=== PATIENT | male | born 1955 | race African-American/Black ===

== ENCOUNTER 2021-12-25 10:34 | Inpatient (IN) | payer MEDICARE, MEDICAID ==
[~2021-12-25] VITALS: Ht 167.6 cm; Wt 64.0 kg
[2021-12-25] MEDS ORDERED: HYDRALAZINE 20MG/ML VIAL IV ONE (11:15)
[2021-12-25 12:14] LABS: BASOPHILS % 0.7 % (0.0-2.0); HEMATOCRIT. 35.2 % (42.0-52.0); HEMOGLOBIN. 11.2 g/dL (14.0-18.0); LYMPHOCYTES % 8.9 % (20.0-50.0); MEAN CORPUSCULAR HEMOGLOBIN 27.3 pg (28.0-32.0); MEAN CORPUSCULAR VOLUME 85.7 fL (80.0-94.0); MEAN PLATELET VOLUME 9.2 fl (7.4-10.4); MONOCYTES % 9.1 % (2.0-8.0); NEUTROPHILS % 80.3 % (40.0-76.0); PLATELET 142 x1000/uL (130-400); RED BLOOD CELL COUNT 4.11 mill/uL (4.7-6.1); RED CELL DISTRIBUTION WIDTH 15.9 % (11.6-14.6)
[2021-12-25 12:23] LABS: PROTHROMBIN TIME 11.2 sec (9.6-11.0)
[2021-12-25 12:25] LABS: CHLORIDE 103 mEq/L (98-107)
[2021-12-25] MEDS ORDERED: ONDANSETRON HCL 4MG/2ML INJ IV ONE (13:15)
[2021-12-25] MEDS ORDERED: ONDANSETRON HCL 4MG/2ML INJ IV NR (15:15)
[2021-12-25] MEDS ORDERED: ONDANSETRON HCL 4MG/2ML INJ IV PRN (21:15)
[2021-12-25] MEDS ORDERED: MAGNESIUM/ALUMINUM HYDROXIDE/SIMETHICONE 30ML UDC PO PRN (21:15)
[2021-12-25] MEDS ORDERED: GUAIFENESIN 200MG/10ML SUGAR FREE UDC PO PRN (21:15)
[2021-12-25] MEDS ORDERED: ENOXAPARIN 40MG/0.4ML SYR SUBCUT SCH (21:15)
[2021-12-25] MEDS ORDERED: NALOXONE HCL 0.4MG/ML VIAL IV PRN (22:00)
[2021-12-25] MEDS: ENOXAPARIN 30MG/0.3ML SYR SUBCUT SCH (22:43)
[2021-12-25 23:00] VITALS: BP 170/88
[2021-12-26 00:01] VITALS: BP 122/60
[2021-12-26 03:54] VITALS: BP 131/64
[2021-12-26 08:00] VITALS: BP 137/75
[2021-12-26 08:23] LABS: BASOPHILS % 0.8 % (0.0-2.0); EOSINOPHILS % 2.3 % (0.0-5.0); HEMATOCRIT. 30.7 % (42.0-52.0); LYMPHOCYTES % 15.2 % (20.0-50.0); MEAN CORPUSCULAR VOLUME 86.2 fL (80.0-94.0); MEAN PLATELET VOLUME 10.3 fl (7.4-10.4); MONOCYTES % 12.9 % (2.0-8.0); NEUTROPHILS % 68.8 % (40.0-76.0); PLATELET 134 x1000/uL (130-400); RED BLOOD CELL COUNT 3.56 mill/uL (4.7-6.1); RED CELL DISTRIBUTION WIDTH 16.2 % (11.6-14.6)
[2021-12-26] MEDS ORDERED: DEXTROSE 50% WATER 50ML SYRINGE IV PRN (09:30)
[2021-12-26 09:42] LABS: PHOSPHORUS 5.5 mg/dL (2.5-4.9); T4 FREE 1.21 ng/dL (0.76-1.46)
[2021-12-26 12:00] VITALS: BP 155/75
[2021-12-26] MEDS: BLOOD SUGAR DIAGNOSTIC STRIP TEST SCH ×3 (12:10→21:00)
[2021-12-26] MEDS: INSULIN LISPRO 100 UNITS/ML SUBCUT SCH ×3 (12:40→21:00)
[2021-12-26 14:46] LABS: HEPATITIS B SURFACE ANTIGEN NEGATIVE
[2021-12-26 16:00] VITALS: BP 161/73
[2021-12-26 19:02] LABS: CREATINE KINASE MB FRACTION 7.5 ng/mL (0.5-3.6)
[2021-12-26 20:00] VITALS: BP 161/75
[2021-12-26] MEDS: ENOXAPARIN 30MG/0.3ML SYR SUBCUT SCH (21:00)
[2021-12-27] VITALS: BP 179/81
[2021-12-27 00:01] LABS: CREATINE KINASE MB FRACTION 6.2 ng/mL (0.5-3.6)
[2021-12-27] MEDS: HYDRALAZINE 20MG/ML VIAL IV PRN ×4 (03:15→21:12)
[2021-12-27 04:00] VITALS: BP 140/67
[2021-12-27 06:01] LABS: BASOPHILS % 0.8 % (0.0-2.0); EOSINOPHILS % 0.8 % (0.0-5.0); HEMATOCRIT. 33.6 % (42.0-52.0); HEMOGLOBIN. 10.9 g/dL (14.0-18.0); LYMPHOCYTES % 18.3 % (20.0-50.0); MEAN CORPUSCULAR HEMOGLOBIN 27.7 pg (28.0-32.0); MEAN CORPUSCULAR VOLUME 85.3 fL (80.0-94.0); MEAN PLATELET VOLUME 10.1 fl (7.4-10.4); NEUTROPHILS % 68.1 % (40.0-76.0); PLATELET 140 x1000/uL (130-400); RED BLOOD CELL COUNT 3.93 mill/uL (4.7-6.1); RED CELL DISTRIBUTION WIDTH 15.8 % (11.6-14.6)
[2021-12-27 06:34] LABS: CHLORIDE 107 mEq/L (98-107)
[2021-12-27 06:48] LABS: CREATINE KINASE 712 IU/L (39-308); CREATINE KINASE MB FRACTION 6.7 ng/mL (0.5-3.6); PHOSPHORUS 5.4 mg/dL (2.5-4.9)
[2021-12-27] MEDS: BLOOD SUGAR DIAGNOSTIC STRIP TEST SCH ×4 (07:18→21:06)
[2021-12-27] MEDS: INSULIN LISPRO 100 UNITS/ML SUBCUT SCH ×4 (07:19→21:00)
[2021-12-27 08:00] VITALS: BP 180/95
[2021-12-27] MEDS ORDERED: FERR325T30 PO (09:02)
[2021-12-27] MEDS ORDERED: ASPI-1406 PO (09:02)
[2021-12-27] MEDS ORDERED: LOPE2TAB24 PO (09:02)
[2021-12-27] MEDS ORDERED: BISA5TAB10 PO (09:02)
[2021-12-27] MEDS ORDERED: FERROUS SULFATE 325MG TABLET PO SCH (09:30)
[2021-12-27] MEDS: ASPIRIN 81MG EC TABLET PO SCH (09:48)
[2021-12-27] MEDS: MORPHINE SULFATE 2 MG/ML CPJ (NOT FOR IM USE) IV PRN ×5 (11:47→21:15)
[2021-12-27 12:00] VITALS: BP 144/64
[2021-12-27] MEDS ORDERED: CLONIDINE HCL 0.2MG/24HR PATCH TD SCH (14:00)
[2021-12-27 16:00] VITALS: BP 184/82
[2021-12-27] MEDS: PANTOPRAZOLE SODIUM 40 MG/VIAL IV SCH (17:18)
[2021-12-27 20:00] VITALS: BP 170/77
[2021-12-27] MEDS: ENOXAPARIN 30MG/0.3ML SYR SUBCUT SCH (21:11)
[2021-12-27] MEDS ORDERED: DEXT 5%/0.45% NACL 1000ML 1,000 ML IV SCH (21:15)
[2021-12-28] VITALS: BP 141/67
[2021-12-28 04:00] VITALS: BP 180/74
[2021-12-28] MEDS: MORPHINE SULFATE 2 MG/ML CPJ (NOT FOR IM USE) IV PRN ×5 (04:20→23:28)
[2021-12-28] MEDS: HYDRALAZINE 20MG/ML VIAL IV PRN (04:20)
[2021-12-28] MEDS: BLOOD SUGAR DIAGNOSTIC STRIP TEST SCH ×4 (05:46→20:47)
[2021-12-28] MEDS: INSULIN LISPRO 100 UNITS/ML SUBCUT SCH ×4 (05:46→20:47)
[2021-12-28 06:49] LABS: HEMOGLOBIN. 11.3 g/dL (14.0-18.0); MEAN CORPUSCULAR HEMOGLOBIN 27.7 pg (28.0-32.0); MEAN CORPUSCULAR VOLUME 85.6 fL (80.0-94.0); MEAN PLATELET VOLUME 9.9 fl (7.4-10.4); PLATELET 141 x1000/uL (130-400); RED BLOOD CELL COUNT 4.09 mill/uL (4.7-6.1); RED CELL DISTRIBUTION WIDTH 16.5 % (11.6-14.6)
[2021-12-28 06:52] LABS: CHLORIDE 109 mEq/L (98-107)
[2021-12-28 07:06] LABS: PHOSPHORUS 7.1 mg/dL (2.5-4.9)
[2021-12-28 08:00] VITALS: BP 181/76
[2021-12-28] MEDS: ASPIRIN 81MG EC TABLET PO SCH (09:12)
[2021-12-28] MEDS: PANTOPRAZOLE SODIUM 40 MG/VIAL IV SCH (09:12)
[2021-12-28] MEDS: CLONIDINE 0.1MG TABLET PO PRN (09:16)
[2021-12-28] MEDS ORDERED: ARIP30TA17 PO (11:57)
[2021-12-28 12:00] VITALS: BP 187/85
[2021-12-28] MEDS: DEXTROSE 5% WATER 1,000 ML IV SCH (13:08)
[2021-12-28] MEDS: HYDRALAZINE HCL 50MG TABLET PO SCH ×2 (13:08→13:17)
[2021-12-28] MEDS: METOCLOPRAMIDE HCL 10MG/2ML VIAL IV SCH ×3 (13:08→23:27)
[2021-12-28] MEDS ORDERED: MINO2.5T2 PO (13:22)
[2021-12-28] MEDS ORDERED: MINOXIDIL 2.5MG TABLET PO SCH ×2 (13:30→17:00)
[2021-12-28] MEDS ORDERED: SORBITOL 70% SOLN 30ML PO NR (15:15)
[2021-12-28 16:02] VITALS: BP 136/70
[2021-12-28 16:44] LABS: PLATELET ESTIMATE NORMAL
[2021-12-28 20:00] VITALS: BP 138/70
[2021-12-28] MEDS: ENOXAPARIN 30MG/0.3ML SYR SUBCUT SCH (20:51)
[2021-12-28] MEDS ORDERED: INSU100I24 SQ (22:42)
[2021-12-28] MEDS ORDERED: GUAI600T30 PO (22:42)
[2021-12-28] MEDS ORDERED: SILD20TA PO (22:42)
[2021-12-28] MEDS ORDERED: CARV25TA47 MT (22:42)
[2021-12-28] MEDS ORDERED: DIPH1TAB24 MT (22:42)
[2021-12-28] MEDS ORDERED: TAMS-11 PO (22:42)
[2021-12-28] MEDS ORDERED: CALC667T6 MT (22:42)
[2021-12-28] MEDS ORDERED: ATOR-2 PO (22:42)
[2021-12-28] MEDS ORDERED: FOLI1TAB87 MT (22:42)
[2021-12-29] VITALS: BP 142/71
[2021-12-29 04:00] VITALS: BP 142/71
[2021-12-29] MEDS: BLOOD SUGAR DIAGNOSTIC STRIP TEST SCH ×4 (05:05→21:00)
[2021-12-29] MEDS: INSULIN LISPRO 100 UNITS/ML SUBCUT SCH ×4 (05:13→21:04)
[2021-12-29] MEDS: DEXTROSE 5% WATER 1,000 ML IV SCH (05:15)
[2021-12-29] MEDS: METOCLOPRAMIDE HCL 10MG/2ML VIAL IV SCH ×4 (05:15→23:52)
[2021-12-29] MEDS: MORPHINE SULFATE 2 MG/ML CPJ (NOT FOR IM USE) IV PRN ×4 (05:15→23:52)
[2021-12-29 07:44] LABS: BASOPHILS % 0.6 % (0.0-2.0); EOSINOPHILS % 3.2 % (0.0-5.0); HEMOGLOBIN. 10.8 g/dL (14.0-18.0); LYMPHOCYTES % 14.4 % (20.0-50.0); MEAN CORPUSCULAR HEMOGLOBIN 27.7 pg (28.0-32.0); MEAN CORPUSCULAR VOLUME 84.9 fL (80.0-94.0); MEAN PLATELET VOLUME 10.2 fl (7.4-10.4); MONOCYTES % 12.6 % (2.0-8.0); NEUTROPHILS % 69.2 % (40.0-76.0); PLATELET 124 x1000/uL (130-400); RED BLOOD CELL COUNT 3.88 mill/uL (4.7-6.1); RED CELL DISTRIBUTION WIDTH 16.5 % (11.6-14.6)
[2021-12-29 08:00] VITALS: BP 100/71
[2021-12-29] MEDS ORDERED: MINOXIDIL 2.5MG TABLET PO SCH (09:30)
[2021-12-29] MEDS: ASPIRIN 81MG EC TABLET PO SCH (09:39)
[2021-12-29] MEDS: PANTOPRAZOLE SODIUM 40 MG/VIAL IV SCH (09:40)
[2021-12-29 12:00] VITALS: BP 130/79
[2021-12-29 16:00] VITALS: BP 160/66
[2021-12-29 16:58] LABS: HEPATITIS B SURFACE ANTIGEN NEGATIVE
[2021-12-29] MEDS: POLYVINYL ALCOHOL OPHTH DROPS 15ML BOTHEYE SCH ×2 (17:45→23:53)
[2021-12-29] MEDS: CALCITRIOL 0.25MCG CAPSULE PO SCH (17:45)
[2021-12-29 20:00] VITALS: BP 109/50
[2021-12-29] MEDS: ENOXAPARIN 30MG/0.3ML SYR SUBCUT SCH (21:07)
[2021-12-30] VITALS: BP 138/67
[2021-12-30] MEDS: DEXTROSE 5% WATER 1,000 ML IV SCH (01:28)
[2021-12-30 04:00] VITALS: BP 142/72
[2021-12-30] MEDS: INSULIN LISPRO 100 UNITS/ML SUBCUT SCH ×4 (05:29→20:33)
[2021-12-30] MEDS: BLOOD SUGAR DIAGNOSTIC STRIP TEST SCH ×4 (05:29→20:34)
[2021-12-30] MEDS: POLYVINYL ALCOHOL OPHTH DROPS 15ML BOTHEYE SCH ×4 (05:29→22:33)
[2021-12-30] MEDS: METOCLOPRAMIDE HCL 10MG/2ML VIAL IV SCH ×4 (05:29→22:33)
[2021-12-30] MEDS: MORPHINE SULFATE 2 MG/ML CPJ (NOT FOR IM USE) IV PRN ×3 (05:30→22:33)
[2021-12-30 08:00] VITALS: BP 151/75
[2021-12-30 08:24] LABS: BASOPHILS % 0.7 % (0.0-2.0); HEMATOCRIT. 31.2 % (42.0-52.0); HEMOGLOBIN. 10.3 g/dL (14.0-18.0); LYMPHOCYTES % 21.9 % (20.0-50.0); MEAN CORPUSCULAR HEMOGLOBIN 28.1 pg (28.0-32.0); MEAN CORPUSCULAR VOLUME 84.9 fL (80.0-94.0); MEAN PLATELET VOLUME 10.3 fl (7.4-10.4); MONOCYTES % 12.6 % (2.0-8.0); NEUTROPHILS % 59.8 % (40.0-76.0); PLATELET 106 x1000/uL (130-400); RED BLOOD CELL COUNT 3.67 mill/uL (4.7-6.1); RED CELL DISTRIBUTION WIDTH 15.7 % (11.6-14.6)
[2021-12-30 08:44] LABS: PHOSPHORUS 6.1 mg/dL (2.5-4.9)
[2021-12-30] MEDS: ASPIRIN 81MG EC TABLET PO SCH (08:44)
[2021-12-30] MEDS: PANTOPRAZOLE SODIUM 40 MG/VIAL IV SCH (08:44)
[2021-12-30] MEDS: CALCITRIOL 0.25MCG CAPSULE PO SCH (08:45)
[2021-12-30] MEDS: ACETAMINOPHEN 325MG TABLET PO PRN ×2 (08:47→17:54)
[2021-12-30 12:00] VITALS: BP 157/80
[2021-12-30 16:00] VITALS: BP 169/88
[2021-12-30] MEDS: CALCIUM ACETATE 667MG CAPSULE PO SCH (17:53)
[2021-12-30] MEDS ORDERED: CALC0.253 PO (18:03)
[2021-12-30] MEDS ORDERED: COR6 PO (18:03)
[2021-12-30] MEDS ORDERED: METO5TAB86 MT (18:03)
[2021-12-30] MEDS ORDERED: OMEP40CA20 PO (18:03)
[2021-12-30 20:00] VITALS: BP 164/88
[2021-12-30] MEDS: CARVEDILOL 6.25 MG TABLET PO SCH (20:32)
[2021-12-30] MEDS: ENOXAPARIN 30MG/0.3ML SYR SUBCUT SCH (20:33)
[2021-12-30] MEDS ORDERED: NALOXONE HCL 0.4MG/ML VIAL IV PRN (22:45)
[2021-12-31] VITALS: BP 155/53
[2021-12-31 04:00] VITALS: BP 179/85
[2021-12-31] MEDS: BLOOD SUGAR DIAGNOSTIC STRIP TEST SCH ×4 (05:37→21:29)
[2021-12-31] MEDS: CLONIDINE 0.1MG TABLET PO PRN ×3 (05:38→17:15)
[2021-12-31] MEDS: METOCLOPRAMIDE HCL 10MG/2ML VIAL IV SCH (05:38)
[2021-12-31] MEDS: POLYVINYL ALCOHOL OPHTH DROPS 15ML BOTHEYE SCH ×4 (05:38→22:20)
[2021-12-31] MEDS: MORPHINE SULFATE 2 MG/ML CPJ (NOT FOR IM USE) IV PRN ×4 (05:48→22:30)
[2021-12-31] MEDS: INSULIN LISPRO 100 UNITS/ML SUBCUT SCH ×4 (07:40→22:17)
[2021-12-31 08:00] VITALS: BP 185/97
[2021-12-31] MEDS: CALCITRIOL 0.25MCG CAPSULE PO SCH (09:20)
[2021-12-31] MEDS: CARVEDILOL 6.25 MG TABLET PO SCH ×2 (09:20→22:16)
[2021-12-31] MEDS: PANTOPRAZOLE SODIUM 40 MG/VIAL IV SCH (09:21)
[2021-12-31] MEDS: CALCIUM ACETATE 667MG CAPSULE PO SCH ×3 (09:21→17:15)
[2021-12-31] MEDS: ASPIRIN 81MG EC TABLET PO SCH (09:21)
[2021-12-31 12:00] VITALS: BP 182/88
[2021-12-31 12:14] LABS: BASOPHILS % 0.4 % (0.0-2.0); EOSINOPHILS % 3.3 % (0.0-5.0); HEMOGLOBIN. 11.1 g/dL (14.0-18.0); LYMPHOCYTES % 10.8 % (20.0-50.0); MEAN CORPUSCULAR HEMOGLOBIN 27.8 pg (28.0-32.0); MEAN PLATELET VOLUME 10.2 fl (7.4-10.4); MONOCYTES % 9.9 % (2.0-8.0); NEUTROPHILS % 75.6 % (40.0-76.0); PLATELET 108 x1000/uL (130-400); RED CELL DISTRIBUTION WIDTH 15.6 % (11.6-14.6)
[2021-12-31 12:24] LABS: PHOSPHORUS 7.5 mg/dL (2.5-4.9)
[2021-12-31 16:00] VITALS: BP 183/89
[2021-12-31 20:00] VITALS: BP 134/75
[2021-12-31] MEDS ORDERED: HYDRALAZINE HCL 50MG TABLET PO SCH (21:00)
[2021-12-31] MEDS: ENOXAPARIN 30MG/0.3ML SYR SUBCUT SCH (22:12)
[2021-12-31] MEDS: MINOXIDIL 2.5MG TABLET PO SCH (22:12)
[2022-01-01] VITALS: BP 150/74
[2022-01-01 04:00] VITALS: BP 152/81
[2022-01-01] MEDS: BLOOD SUGAR DIAGNOSTIC STRIP TEST SCH ×4 (04:55→21:00)
[2022-01-01] MEDS: POLYVINYL ALCOHOL OPHTH DROPS 15ML BOTHEYE SCH ×3 (04:56→17:17)
[2022-01-01] MEDS: MORPHINE SULFATE 2 MG/ML CPJ (NOT FOR IM USE) IV PRN ×4 (05:02→21:56)
[2022-01-01] MEDS: INSULIN LISPRO 100 UNITS/ML SUBCUT SCH ×4 (05:03→21:00)
[2022-01-01 06:47] LABS: BASOPHILS % 0.5 % (0.0-2.0); EOSINOPHILS % 3.4 % (0.0-5.0); HEMATOCRIT. 32.5 % (42.0-52.0); HEMOGLOBIN. 10.6 g/dL (14.0-18.0); MEAN CORPUSCULAR HEMOGLOBIN 27.8 pg (28.0-32.0); MEAN CORPUSCULAR VOLUME 84.8 fL (80.0-94.0); MEAN PLATELET VOLUME 10.5 fl (7.4-10.4); NEUTROPHILS % 72.1 % (40.0-76.0); PLATELET 103 x1000/uL (130-400); RED BLOOD CELL COUNT 3.83 mill/uL (4.7-6.1); RED CELL DISTRIBUTION WIDTH 15.6 % (11.6-14.6)
[2022-01-01 07:47] LABS: PHOSPHORUS 5.9 mg/dL (2.5-4.9)
[2022-01-01 08:00] VITALS: BP 173/82
[2022-01-01] MEDS: CALCIUM ACETATE 667MG CAPSULE PO SCH ×3 (09:11→17:17)
[2022-01-01] MEDS: CARVEDILOL 6.25 MG TABLET PO SCH ×2 (09:11→21:54)
[2022-01-01] MEDS: MINOXIDIL 2.5MG TABLET PO SCH ×2 (09:11→21:55)
[2022-01-01] MEDS: PANTOPRAZOLE SODIUM 40 MG/VIAL IV SCH (09:12)
[2022-01-01] MEDS: ASPIRIN 81MG EC TABLET PO SCH (09:12)
[2022-01-01] MEDS: CALCITRIOL 0.25MCG CAPSULE PO SCH (09:12)
[2022-01-01 12:00] VITALS: BP 140/75
[2022-01-01] MEDS ORDERED: IMOD PO (14:29)
[2022-01-01 16:00] VITALS: BP 149/81
[2022-01-01 20:00] VITALS: BP 149/82
[2022-01-01] MEDS: ENOXAPARIN 30MG/0.3ML SYR SUBCUT SCH (21:55)
[2022-01-02] VITALS: BP 148/85
[2022-01-02 04:00] VITALS: BP 206/84
[2022-01-02] MEDS: POLYVINYL ALCOHOL OPHTH DROPS 15ML BOTHEYE SCH ×2 (05:35)
[2022-01-02] MEDS: HYDRALAZINE 20MG/ML VIAL IV PRN (05:36)
[2022-01-02 07:09] LABS: BASOPHILS % 0.5 % (0.0-2.0); EOSINOPHILS % 2.7 % (0.0-5.0); HEMATOCRIT. 34.1 % (42.0-52.0); HEMOGLOBIN. 11.3 g/dL (14.0-18.0); MEAN CORPUSCULAR HEMOGLOBIN 28.1 pg (28.0-32.0); MEAN CORPUSCULAR VOLUME 84.5 fL (80.0-94.0); MEAN PLATELET VOLUME 11.5 fl (7.4-10.4); MONOCYTES % 13.4 % (2.0-8.0); NEUTROPHILS % 69.4 % (40.0-76.0); PLATELET 116 x1000/uL (130-400); RED BLOOD CELL COUNT 4.04 mill/uL (4.7-6.1); RED CELL DISTRIBUTION WIDTH 15.6 % (11.6-14.6)
[2022-01-02] MEDS: INSULIN LISPRO 100 UNITS/ML SUBCUT SCH (07:13)
[2022-01-02] MEDS: BLOOD SUGAR DIAGNOSTIC STRIP TEST SCH (07:13)
[2022-01-02 07:46] LABS: CHLORIDE 101 mEq/L (98-107)
[2022-01-02 07:55] LABS: PHOSPHORUS 6.8 mg/dL (2.5-4.9)
[2022-01-02 08:00] VITALS: BP 134/76
[2022-01-02] MEDS: PANTOPRAZOLE SODIUM 40 MG/VIAL IV SCH (09:00)
[2022-01-02] MEDS ORDERED: LOPERAMIDE HCL 2MG CAPSULE PO PRN (09:15)
[2022-01-02] MEDS: CALCITRIOL 0.25MCG CAPSULE PO SCH (10:20)
[2022-01-02] MEDS: CALCIUM ACETATE 667MG CAPSULE PO SCH (10:20)
[2022-01-02] MEDS: MINOXIDIL 2.5MG TABLET PO SCH (10:21)
[2022-01-02] MEDS: ASPIRIN 81MG EC TABLET PO SCH (10:21)
[2022-01-02] MEDS: CARVEDILOL 6.25 MG TABLET PO SCH (10:21)
[2022-01-02 11:05] VITALS: BP 150/76
== END 2022-01-02 12:25 | disposition home health service (06) | DRG 388 ==
LOC: ER 11:40 → EDBEDREQ 17:27 → EDBEDREQTM 17:31 → SUPCPDRO 19:55 → 8WST 23:24
PROVIDERS: ADMIT Internal Medicine; ATTEND Internal Medicine
PROC: 0D9670Z Drainage of Stomach with Drainage Device, Via Natural or Artificial Opening (ICD-10-PCS; principal; 2021-12-25)
PROC: 5A1D70Z Performance of Urinary Filtration, Intermittent, Less than 6 Hours Per Day (ICD-10-PCS; 2021-12-29)
PROC: 5A1D70Z Performance of Urinary Filtration, Intermittent, Less than 6 Hours Per Day (ICD-10-PCS; 2021-12-31)
PROC: 5A1D70Z Performance of Urinary Filtration, Intermittent, Less than 6 Hours Per Day (ICD-10-PCS; 2022-01-02)
DX: K56.7 Ileus, unspecified (principal); N18.6 End stage renal disease; I13.2 Hypertensive heart and chronic kidney disease with heart failure and with stage 5 chronic kidney disease, or end stage renal disease; N25.81 Secondary hyperparathyroidism of renal origin; K52.9 Noninfective gastroenteritis and colitis, unspecified; K56.609 Unspecified intestinal obstruction, unspecified as to partial versus complete obstruction; E11.22 Type 2 diabetes mellitus with diabetic chronic kidney disease; N28.1 Cyst of kidney, acquired; E78.5 Hyperlipidemia, unspecified; N20.0 Calculus of kidney; E11.42 Type 2 diabetes mellitus with diabetic polyneuropathy; I50.9 Heart failure, unspecified; R74.01 Elevation of levels of liver transaminase levels; R11.0 Nausea; Z99.2 Dependence on renal dialysis; Z79.4 Long term (current) use of insulin; Z79.82 Long term (current) use of aspirin; Z20.822 Contact with and (suspected) exposure to COVID-19; R79.89 Other specified abnormal findings of blood chemistry; R77.8 Other specified abnormalities of plasma proteins; D63.1 Anemia in chronic kidney disease
CPT/HCPCS: 36415; 71045; 74018; 74176; 76700; 80048; 80053; 80061; 82330; 82550; 82553; 82962; 83036; 83735; 83880; 83970; 84100; 84439; 84443; 84484; 85025; 85379; 86705; 86709; 86803; 87015; 87045; 87340; 87427; 87449; 87493; 89055; 93005; 93306; 97162; 99285; C9113; J0360; J1650; J1815; J2270; J2405; J2765; J7070